=== PATIENT | female | born 1960 | race Caucasian/White ===

== ENCOUNTER → 2016-10-21 | Outpatient (CLI) | payer BC ==
--- NOTE | 2016-10-22 13:46 | Diagnostic Imaging Report ---
EXAMINATION: Bilateral screening mammogram with a Computer Aided Detection (CAD) system. INDICATION: Screening. PERSONAL HISTORY: No current complaints stated on the questionnaire. COMPARISON: 02/19/2006. FINDINGS: The breasts are composed of heterogeneously dense parenchyma which may decrease mammographic sensitivity. There is a 1 cm asymmetry along the central aspect of the left MLO view with no definitive correlate on the CC projection. The right breast is dense with no definitive focal lesion. IMPRESSION: Dense breasts. 1 cm asymmetry along the central aspect of the left MLO view. Focal compression views and bilateral ultrasound evaluation are recommended. ACR BI-RADS Category 0: Incomplete. (Needs additional imaging evaluation). Result letter will be mailed to the patient. Note: At least 10% of breast cancer is not imaged by mammography. Dictated by: Dictated on workstation # [id number]
== END ==
LOC: RAD 10:11
PROVIDERS: ATTEND Nurse Practitioner Family
DX: Z12.31 Encounter for screening mammogram for malignant neoplasm of breast (principal)
CPT/HCPCS: 77067

== ENCOUNTER → 2016-11-10 | Outpatient (CLI) | payer BC ==
--- NOTE | 2016-11-10 18:14 | Diagnostic Imaging Report ---
Left breast diagnostic mammogram. INDICATION: Asymmetry along the left MLO view. The current study was also evaluated with a Computer Aided Detection (CAD) system. FINDINGS: When the central aspect of the left MLO view is compressed, 2 subcentimeter circumscribed rounded asymmetries are seen. Etiology is indeterminate. IMPRESSION: Indeterminate rounded subcentimeter asymmetries seen in the central aspect of the left MLO view. Ultrasound evaluation pending. ACR BI-RADS Category 0: Incomplete. (Needs additional imaging evaluation). Result letter will be mailed to the patient. Note: At least 10% of breast cancer is not imaged by mammography. Dictated by: Dictated on workstation # [id number]
--- NOTE | 2016-11-10 18:18 | Diagnostic Imaging Report ---
Bilateral breast ultrasound. INDICATION: Dense breasts. Asymmetries seen in the left breast. FINDINGS: The four quadrants and retroareolar region of both breasts were scanned. The right breast demonstrates no definite abnormality. The left breast demonstrates a lesion measuring 1.2 x 0.7 x 0.7 cm in the retroareolar area. There are lobulated margins. Portions of the lesion are not well evaluated due to overlying shadow obscuring a portion of the margin. There is otherwise no internal vascularity suggested and there is suggestion of through-transmission. This is probably a complicated cyst. At 3:30 o'clock position, 4 cm from the nipple there are adjacent simple cysts measuring 1 cm and the smaller one measuring 0.6 cm which may correlate with the asymmetries seen on mammography. IMPRESSION: 1. Asymmetries seen on mammography appear to correlate with simple cysts around 3:30 o'clock position in the left breast. 2. In the retroareolar aspect of the left breast, a1.2 cm lobulated anechoic lesion with partially obscured margins is probably a complicated cyst with no definite internal solid component. Due to the partially obscured margins by overlying shadowing, a six-month follow-up left breast ultrasound is recommended to ensure stability. ACR BI-RADS Category 3: Probably benign findings. Dictated by: Dictated on workstation # [id number]
== END ==
LOC: RAD 14:05
PROVIDERS: ATTEND Nurse Practitioner Family
DX: R92.8 Other abnormal and inconclusive findings on diagnostic imaging of breast (principal)

== ENCOUNTER → 2017-05-12 | Outpatient (CLI) | payer BC ==
--- NOTE | 2017-05-12 22:30 | Diagnostic Imaging Report ---
Left breast ultrasound. INDICATION: Follow-up complicated cystic lesion in the retroareolar region of the left breast. COMPARISON: 11/10/2016. FINDINGS: The previously seen lesion is better evaluated this time and corresponds with a lobulated simple cyst measuring 1 cm. The borders are better evaluated with no obscured portion as seen on the previous exam. Other simple cysts are also seen around the periareolar region. No solid mass. IMPRESSION: Simple cysts identified with no suspicious lesion. Annual screening mammogram is recommended. ACR BI-RADS Category 2: Benign findings. Dictated by: Dictated on workstation # [id number]
== END ==
LOC: RAD 07:54
PROVIDERS: ATTEND Nurse Practitioner Family
DX: N60.02 Solitary cyst of left breast (principal)
CPT/HCPCS: 76642

== ENCOUNTER 2019-02-10 10:59 | Outpatient (RCR) | payer BC | END 2019-05-11 | disposition home or self-care (01) | LOC: CARD 10:59 | PROVIDERS: ATTEND Nurse Practitioner Family | DX: R94.31 Abnormal electrocardiogram [ECG] [EKG] (principal) | CPT/HCPCS: 93225; 93226 ==

== ENCOUNTER → 2019-03-01 | Outpatient (CLI) | payer BC ==
[~2019-03-01] MED LIST: CATHETER FLUSH 10 ML SYR IV PRN; REGADENOSON 0.4 MG/5 ML SYR (LEXISCAN) IV ONE
--- NOTE | 2019-03-01 17:08 | STRESS TEST ---
DATE OF SERVICE: 03/01/2019 RESTING AND POST REGADENOSON TECHNETIUM-99M TETROFOSMIN SPECT CT IMAGING ORDERING PHYSICIAN: Dr. Rdz. PRIMARY PHYSICIAN: Dr. Herrera. OTHER PHYSICIAN: ISMAEL Urena CLINICAL DIAGNOSES: Syncope, shortness of breath, weakness. Baseline images were carried out after injection of 10.1 mCi of technetium-99m Tetrofosmin. This was followed by 0.4 mg regadenoson and 30.6 mCi of technetium-99m Tetrofosmin for stress imaging. The electrocardiogram showed sinus rhythm at baseline and there was incomplete right bundle branch block. The electrocardiogram did not change significantly with the regadenoson infusion. The patient tolerated the procedure well and did not report symptoms. Review of images at rest and following stress does not indicate any significant perfusion defects consistent with significant myocardial ischemia or infarction. Gated images show normal global left ventricular systolic function with normal regional wall motion. Left ventricular ejection fraction is calculated to be 69%. Left ventricular end-diastolic volume is 42 mL. TID is absent (1.07). CONCLUSIONS: 1. No evidence of any significant myocardial ischemia or infarction on this study. 2. Normal regional wall motion. 3. Normal global left ventricular systolic function with a calculated ejection fraction of 69%. Job ID: [id number] DocumentID: [id number] Dictated Date: 03/01/2019 13:29:32 Personal Chef Date: 03/01/2019 17:06:51 Dictated By: ANAMARIA RDZ MD, MA, FACP, FACC,
== END ==
LOC: CARD 08:44
PROVIDERS: ATTEND Internal Medicine Cardiovascular Disease
DX: I73.9 Peripheral vascular disease, unspecified (principal); M79.7 Fibromyalgia; R55 Syncope and collapse; R06.02 Shortness of breath
CPT/HCPCS: 78452; 93017; 93306; 93923

== ENCOUNTER → 2019-06-10 | Outpatient (CLI) | payer BC ==
--- NOTE | 2019-06-10 11:48 | Diagnostic Imaging Report ---
INDICATION: Routine screening. Comparison is made with prior mammogram from 10/21/2016. 2-D and 3-D bilateral screening mammography was performed with CAD. Both breasts are heterogeneously dense, limiting the sensitivity of mammography. Circumscribed lesion in the slightly outer inferior left breast is noted, most suggestive of a cyst. No spiculated mass or malignant appearing microcalcifications are seen. There are benign calcifications. Axillae are unremarkable. IMPRESSION: BI-RADS Category 2 No mammographic features suspicious for malignancy are identified. Dictated by: Dictated on workstation # [id number]
== END ==
LOC: RAD 08:38
PROVIDERS: ATTEND Nurse Practitioner Family
DX: Z12.31 Encounter for screening mammogram for malignant neoplasm of breast (principal)
CPT/HCPCS: 77067

== ENCOUNTER 2019-08-04 19:45 | Outpatient (CLI) | payer MEDICAID, OTHER | END 2019-08-05 06:30 | disposition home or self-care (01) | LOC: SLEEP 19:45 | PROVIDERS: ATTEND Psychiatry & Neurology Neurology | DX: G47.33 Obstructive sleep apnea (adult) (pediatric) (principal); G47.00 Insomnia, unspecified | CPT/HCPCS: 95810 ==

== ENCOUNTER 2020-02-14 11:10 | Emergency (ER) | payer OTHER ==
[~2020-02-14] VITALS: Ht 160 cm; Wt 83.0 kg
[2020-02-14 12:12] LABS: BASOPHILS % (AUTO) 0 % (0-10); EOSINOPHILS # (AUTO) 0.1 10^3/uL (0.0-0.3); EOSINOPHILS % (AUTO) 2 % (0-10); HEMATOCRIT 41 % (35-52); HEMOGLOBIN 13.9 G/DL (11.5-16.0); LYMPHOCYTES # (AUTO) 1.6 X 10^3 (1.0-4.0); LYMPHOCYTES % (AUTO) 34 % (12-44); MEAN CORPUSCULAR HEMOGLOBIN 30 PG (25-34); MEAN CORPUSCULAR HGB CONC 34 G/DL (32-36); MEAN CORPUSCULAR VOLUME 89 FL (80-99); MEAN PLATELET VOLUME 8.4 FL (7.4-10.4); MONOCYTES # (AUTO) 0.5 X 10^3 (0.0-1.0); MONOCYTES % (AUTO) 10 % (0-12); NEUTROPHILS # (AUTO) 2.6 X 10^3 (1.8-7.8); NEUTROPHILS % (AUTO) 54 % (42-75); PLATELET COUNT 279 10^3/uL (130-400); RED CELL DISTRIBUTION WIDTH 13.5 % (10.0-14.5); WHITE BLOOD COUNT 4.7 10^3/uL (4.3-11.0)
[2020-02-14 12:19] LABS: BILIRUBIN,URINE NEGATIVE (NEGATIVE); CLARITY,URINE CLEAR; COLOR,URINE YELLOW; GLUCOSE, URINE (UA) NEGATIVE (NEGATIVE); KETONES,URINE NEGATIVE (NEGATIVE); LEUKOCYTE ESTERASE ,URINE NEGATIVE (NEGATIVE); NITRITE,URINE NEGATIVE (NEGATIVE); PROTEIN,URINE NEGATIVE (NEGATIVE)
[2020-02-14 12:25] LABS: RBC,URINE RARE /HPF
[2020-02-14 12:26] LABS: BACTERIA,URINE TRACE /HPF; WBC,URINE 0-2 /HPF
[2020-02-14 12:39] LABS: ERYTHROCYTE SEDIMENTATION RATE 8 MM/HR (0-30)
[2020-02-14 12:49] LABS: ALANINE AMINOTRANSFERASE 23 U/L (0-55); ALBUMIN 4.5 GM/DL (3.2-4.5); ALKALINE PHOSPHATASE 94 U/L (40-136); BILIRUBIN,TOTAL 0.5 MG/DL (0.1-1.0); BUN/CREATININE RATIO 10; CALCIUM 9.6 MG/DL (8.5-10.1); CARBON DIOXIDE 27 MMOL/L (21-32); CHLORIDE 105 MMOL/L (98-107); CREATINE KINASE 90 U/L (29-168); CREATININE SERUM 0.83 MG/DL (0.60-1.30); GFR ESTIMATED > 60; GLUCOSE 88 MG/DL (70-105); MAGNESIUM 2.2 MG/DL (1.6-2.4); POTASSIUM 4.6 MMOL/L (3.6-5.0); SODIUM 141 MMOL/L (135-145); TOTAL PROTEIN 7.8 GM/DL (6.4-8.2)
--- NOTE | 2020-02-14 13:14 | ED General ---
General Chief Complaint: General Problems/Pain Stated Complaint: PAIN ALL OVER Nursing Triage Note: PT STATES HX OF LYME DISEASE, PAIN ALL OVER FOR 3 DAYS, IBUPROFEN MG TAKEN AT 0900. DENIES CHEST PAIN OR FEVER, JUST MUSCLE PAIN AND WEAKNESS. Nursing Sepsis Screen: No Definite Risk Source of Information: Patient Exam Limitations: No Limitations History of Present Illness Date Seen by Provider: Feb 14, 2020 Time Seen by Provider: 11:52 Initial Comments This 59-year-old woman presents to the emergency room with complaints of generalized myalgia throughout the entire body. She states this is an exacerbation of a chronic problem rather than new problem. She states history of Lyme's disease. 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 She denies any acute symptoms of infectious illness such as cough, fever, vomiting, shortness of breath, etc. She denies recently stopping or starting any medications. Allergies and Home Medications Allergies Coded Allergies: cephalexin (Unverified Allergy, Unknown, Hives, 04/09/16) codeine (Unverified Adverse Reaction, Unknown, Nausea, 04/09/16) mold (Unverified Adverse Reaction, Unknown, 04/09/16) Patient Home Medication List Home Medication List Reviewed: Yes Review of Systems Review of Systems Constitutional: no symptoms reported EENTM: no symptoms reported Respiratory: no symptoms reported Cardiovascular: no symptoms reported Gastrointestinal: no symptoms reported Genitourinary: no symptoms reported Musculoskeletal: see HPI Skin: no symptoms reported Psychiatric/Neurological: No Symptoms Reported Hematologic/Lymphatic: No Symptoms Reported Past Wkbyyqb-Fvqlzn-Rheian Hx Past Med/Social Hx: Reviewed Nursing Past Med/Soc Hx Patient Social History Alcohol Use: Denies Use Recreational Drug Use: No Smoking Status: Never a Smoker Recent Foreign Travel: No Contact w/Someone Who Travel: No Recent Infectious Disease Expo: No Recent Hopitalizations: No Physical Abuse: No Sexual Abuse: No Mistreated: No Fear: No Immunizations Up To Date Tetanus Booster (TDap): Unknown Seasonal Allergies Seasonal Allergies: No Past Medical History Surgeries: Yes Bowel Surgery (colectomy) Respiratory: No Cardiac: Yes Hypertension Neurological: No : No Reproductive Disorders: No Gastrointestinal: Yes (colectomy) Colitis, Irritable Bowel Musculoskeletal: Yes (history of Lyme's disease) Fibromyalgia Endocrine: No Cancer: No Psychosocial: No Integumentary: No Blood Disorders: Yes (history of Lyme's disease) Physical Exam Vital Signs Vital Signs - First Documented 02/14/20 02/14/20 11:49 13:48 Temp 36.5 Pulse 80 Resp 18 B/P (MAP) 157/98 (117) Pulse Ox 99 O2 Delivery Room Air Capillary Refill : Less Than 3 Seconds Height, Weight, BMI Height: 5'2" Weight: 180lbs. oz. 81.711370vr; 32.00 BMI Method:Stated General Appearance: No Apparent Distress, WD/WN, Thin HEENT: PERRL/EOMI, Normal ENT Inspection Neck: Normal Inspection Respiratory: Lungs Clear, Normal Breath Sounds, No Accessory Muscle Use Cardiovascular: Regular Rate, Rhythm, No Edema, No Murmur Gastrointestinal: Normal Bowel Sounds, Non Tender, Soft Extremity: Normal Inspection, No Pedal Edema, Other (generalized tenderness) Neurologic/Psychiatric: Alert, Oriented x3, No Motor/Sensory Deficits, Normal Mood/Affect, cardiology clinical nurse specialist II-XII Norm as Tested Skin: Normal Color, Warm/Dry Progress/Results/Core Measures Suspected Sepsis Recent Fever Within 48 Hours: No Infection Criteria Present: None New/Unexplained Altered Menta: No Sepsis Screen: No Definite Risk SIRS Temperature: Pulse: 80 Respiratory Rate: 18 Laboratory Tests 02/14/20 12:00: White Blood Count 4.7 Blood Pressure 157 /98 Mean: 117 Laboratory Tests 02/14/20 12:00: Creatinine 0.83, Platelet Count 279, Total Bilirubin 0.5 Results/Orders Lab Results Laboratory Tests Test 02/14/20 12:00 02/14/20 12:14 Range/Units White Blood Count 4.7 4.3-11.0 10^3/uL Red Blood Count 4.62 4.35-5.85 10^6/uL Hemoglobin 13.9 11.5-16.0 G/DL Hematocrit 41 35-52 % Mean Corpuscular Volume 89 80-99 FL Mean Corpuscular Hemoglobin 30 25-34 PG Mean Corpuscular Hemoglobin Concent 34 32-36 G/DL Red Cell Distribution Width 13.5 10.0-14.5 % Platelet Count 279 130-400 10^3/uL Mean Platelet Volume 8.4 7.4-10.4 FL Neutrophils (%) (Auto) 54 42-75 % Lymphocytes (%) (Auto) 34 12-44 % Monocytes (%) (Auto) 10 0-12 % Eosinophils (%) (Auto) 2 0-10 % Basophils (%) (Auto) 0 0-10 % Neutrophils # (Auto) 2.6 1.8-7.8 X 10^3 Lymphocytes # (Auto) 1.6 1.0-4.0 X 10^3 Monocytes # (Auto) 0.5 0.0-1.0 X 10^3 Eosinophils # (Auto) 0.1 0.0-0.3 10^3/uL Basophils # (Auto) 0.0 0.0-0.1 10^3/uL Erythrocyte Sedimentation Rate 8 0-30 MM/HR Sodium Level 141 135-145 MMOL/L Potassium Level 4.6 3.6-5.0 MMOL/L Chloride Level 105 98-107 MMOL/L Carbon Dioxide Level 27 21-32 MMOL/L Anion Gap 9 5-14 MMOL/L Blood Urea Nitrogen 8 7-18 MG/DL Creatinine 0.83 0.60-1.30 MG/DL Estimat Glomerular Filtration Rate > 60 BUN/Creatinine Ratio 10 Glucose Level 88 70-105 MG/DL Calcium Level 9.6 8.5-10.1 MG/DL Corrected Calcium 9.2 8.5-10.1 MG/DL Magnesium Level 2.2 1.6-2.4 MG/DL Total Bilirubin 0.5 0.1-1.0 MG/DL Aspartate Amino Transf (AST/SGOT) 23 5-34 U/L Alanine Aminotransferase (ALT/SGPT) 23 0-55 U/L Alkaline Phosphatase 94 40-136 U/L Total Creatine Kinase 90 29-168 U/L C-Reactive Protein High Sensitivity 0.38 0.00-0.50 MG/DL Total Protein 7.8 6.4-8.2 GM/DL Albumin 4.5 3.2-4.5 GM/DL TSH [place] Testing 2.30 0.35-4.94 UIU/ML Urine Color YELLOW Urine Clarity CLEAR Urine pH 6.0 5-9 Urine Specific [place] 1.010 L 1.016-1.022 Urine Protein NEGATIVE NEGATIVE Urine Glucose (UA) NEGATIVE NEGATIVE Urine Ketones NEGATIVE NEGATIVE Urine Nitrite NEGATIVE NEGATIVE Urine Bilirubin NEGATIVE NEGATIVE Urine Urobilinogen 0.2 < = 1.0 MG/DL Urine Leukocyte Esterase NEGATIVE NEGATIVE Urine RBC (Auto) TRACE-I NEGATIVE Urine RBC RARE /HPF Urine WBC 0-2 /HPF Urine Squamous Epithelial Cells 2-5 /HPF Urine Crystals NONE /LPF Urine Bacteria TRACE /HPF Urine Casts NONE /LPF Urine Mucus NEGATIVE /LPF Urine Culture Indicated NO My Orders Orders - ALKA ROBBINS MD Cbc With Automated Diff (02/14/20 12:05) Comprehensive Metabolic Panel (02/14/20 12:05) Creatine Kinase (02/14/20 12:05) Hs C Reactive Protein (02/14/20 12:05) Magnesium (02/14/20 12:05) Thyroid Analyzer (02/14/20 12:05) Ua Culture If Indicated (02/14/20 12:05) Erythrocyte Sedimentation Rate (02/14/20 12:05) Ed Iv/Invasive Line Start (02/14/20 12:05) Ketorolac Injection (Toradol Injection) (02/14/20 13:15) Medications Given in ED Current Medications Medications Dose Ordered Sig/Bernice Route Start Time Stop Time Status Last Admin Dose Admin Ketorolac Tromethamine 15 mg ONCE ONCE IVP 02/14/20 13:15 02/14/20 13:16 DC 02/14/20 13:23 15 MG Vital Signs/I&O 02/14/20 02/14/20 02/14/20 11:49 13:23 13:48 Temp 36.5 36.5 36.5 Pulse 80 75 Resp 18 18 B/P (MAP) 157/98 (117) 137/87 (117) Pulse Ox 99 99 O2 Delivery Room Air Capillary Refill : Less Than 3 Seconds Blood Pressure Mean: 117 Progress Note : Progress Note Workup in the ER was unremarkable. Patient was given Toradol for pain control. I discussed the case with Veronica Hand, patient's primary care provider.further evaluation in the outpatient setting was felt most appropriate. See discharge instructions. Departure Impression Primary Impression: Myalgia Disposition: 01 HOME, SELF-CARE Condition: Stable Departure-Patient Inst. Decision time for Depature: 13:16 Referrals: [facility]I HAND (PCP) Primary Care Physician Patient Instructions: Fibromyalgia (DC) Add. Discharge Instructions: Follow-up with your primary care provider as soon as possible. Consider testing for labs not performed at the emergency room which might include vitamin D level and vitamin B-12. In the meantime, eat a gluten-free diet that has worked for you in the past. Return to care if you have a significant worsening in symptoms. You may take ibuprofen up to 400 mg every 6 hours as needed and Tylenol (acetaminophen) up to 1000 mg every 6 hours as needed. All discharge instructions reviewed with patient and/or family. Voiced understanding. Copy Copies To 1: SERAFIN DALY JOSHUA T MD Feb 14, 2020 13:14
[2020-02-14] MEDS ORDERED: KETOROLAC 30 MG/ML VIAL IVP ONE (13:15)
[2020-02-14 13:48] VITALS: BP 137/87
== END 2020-02-14 13:47 | disposition home or self-care (01) ==
LOC: EDUNIT# 11:10 → ER 11:11
DX: M79.10 Myalgia, unspecified site (principal); Z88.1 Allergy status to other antibiotic agents; Z88.5 Allergy status to narcotic agent
CPT/HCPCS: 36415; 80053; 81000; 82550; 83735; 84443; 85025; 85652; 86141

== ENCOUNTER 2020-03-23 14:29 | Outpatient (RCR) | payer OTHER | END 2020-05-03 11:13 | disposition home or self-care (01) | PROVIDERS: ATTEND Nurse Practitioner Family | DX: M54.5 Low back pain (principal) ==

== ENCOUNTER 2020-10-27 15:32 | Emergency (ER) | payer OTHER ==
[~2020-10-27] VITALS: Ht 160 cm; Wt 83.9 kg
[2020-10-27 16:03] LABS: BASOPHILS % (AUTO) 0 % (0-10); EOSINOPHILS # (AUTO) 0.1 10^3/uL (0.0-0.3); EOSINOPHILS % (AUTO) 1 % (0-10); HEMATOCRIT 43 % (35-52); HEMOGLOBIN 14.5 g/dL (11.5-16.0); LYMPHOCYTES # (AUTO) 1.9 10^3/uL (1.0-4.0); LYMPHOCYTES % (AUTO) 33 % (12-44); MEAN CORPUSCULAR HEMOGLOBIN 30 pg (25-34); MEAN CORPUSCULAR HGB CONC 33 g/dL (32-36); MEAN CORPUSCULAR VOLUME 89 fL (80-99); MEAN PLATELET VOLUME 8.7 fL (9.0-12.2); MONOCYTES # (AUTO) 0.5 10^3/uL (0.0-1.0); MONOCYTES % (AUTO) 9 % (0-12); NEUTROPHILS # (AUTO) 3.3 10^3/uL (1.8-7.8); NEUTROPHILS % (AUTO) 57 % (42-75); PLATELET COUNT 323 10^3/uL (130-400); WHITE BLOOD COUNT 5.8 10^3/uL (4.3-11.0)
[2020-10-27 16:14] LABS: ALBUMIN 4.9 GM/DL (3.2-4.5); CHLORIDE 102 MMOL/L (98-107); POTASSIUM 3.6 MMOL/L (3.6-5.0); SODIUM 140 MMOL/L (135-145)
[2020-10-27 16:15] LABS: CALCIUM 9.8 MG/DL (8.5-10.1)
--- NOTE | 2020-10-27 16:15 | ED Abdominal Pain ---
General Chief Complaint: Abdominal/GI Problems Stated Complaint: CP/BACK PAIN Nursing Triage Note: Ambulatory to rm 5. Pt was sent to ED from [facility]. Pt c/o epigastric pain that began at approximately 0930 this morning. Pt reports pain wraps all the way around to back. Pt reports taking IBU this morning at 1233. Pt c/o gas and burping today. Sepsis Screen: No Definite Risk Source of Information: Patient Exam Limitations: No Limitations History of Present Illness Date Seen by Provider: October 27, 2020 Time Seen by Provider: 15:37 Initial Comments This is a well-appearing 59-year-old female who presents to the ER with epigastric pain that radiates around both sides into her back. States her symptoms began around 9 AM this morning while she was getting dressed. Describes as sharp pains that is worse with movement. Currently rating 9/10 at this time. Reports increased burping and epigastric pressure. States that she drank a turmeric tea earlier to see if this would help as her fibromyalgia is also flared at this time. No fevers, chills, cough, shortness of breath, nausea, vomiting. Allergies and Home Medications Allergies Coded Allergies: cephalexin (Unverified Allergy, Unknown, Hives, 04/09/16) codeine (Unverified Adverse Reaction, Unknown, Nausea, 04/09/16) mold (Unverified Adverse Reaction, Unknown, 04/09/16) Home Medications Hydrocodone/Acetaminophen 1 Each Tablet, 1 TAB PO Q6H PRN for PAIN-MODERATE (5- 7) Prescribed by: JOSE D MCCOY on 10/27/201911 Ondansetron 4 Mg Tab.rapdis, 4 MG PO Q6H Prescribed by: JOSE D MCCOY on 10/27/201927 Patient Home Medication List Home Medication List Reviewed: Yes Review of Systems Review of Systems Constitutional: see HPI EENTM: No Symptoms Reported Respiratory: No Symptoms Reported Cardiovascular: No Symptoms Reported Gastrointestinal: See HPI Genitourinary: No Symptoms Reported Musculoskeletal: see HPI Skin: no symptoms reported Psychiatric/Neurological: No Symptoms Reported Endocrine: No Symptoms Reported Hematologic/Lymphatic: No Symptoms Reported Past Gjygnux-Rjfnuf-Wwdlvr Hx Patient Social History Alcohol Use: Denies Use 2nd Hand Smoke Exposure: No Recent Infectious Disease Expo: No Recent Hopitalizations: No Immunizations Up To Date Tetanus Booster (TDap): Unknown Seasonal Allergies Seasonal Allergies: No Past Medical History Surgeries: Yes (Pt has J pouch) Bowel Surgery Respiratory: No Cardiac: Yes Hypertension Neurological: No Reproductive Disorders: No Gastrointestinal: Yes (colectomy) Colitis, Irritable Bowel Musculoskeletal: Yes (history of Lyme's disease) Fibromyalgia Endocrine: No Cancer: No Psychosocial: No Integumentary: No Blood Disorders: Yes (history of Lyme's disease) Physical Exam Vital Signs Vital Signs - First Documented 10/27/20 15:37 Temp 36.4 Pulse 93 Resp 26 B/P (MAP) 148/105 (119) Pulse Ox 97 O2 Delivery Room Air Capillary Refill : Less Than 3 Seconds Height/Weight/BMI Height: 5'2" Weight: 180lbs. oz. 81.482757mk; 32.00 BMI Method:Stated General Appearance: WD/WN, no apparent distress HEENT: PERRL/EOMI, normal ENT inspection Neck: full range of motion, normal inspection Respiratory: lungs clear, normal breath sounds, no respiratory distress, no accessory muscle use, other (lower ribs bilat tender to palpation ant, lat, and posterior. ) Cardiovascular: regular rate, rhythm, no edema, no murmur Gastrointestinal: normal bowel sounds, soft; No distended Extremities: normal range of motion, normal inspection Back: normal inspection, no vertebral tenderness; No decreased range of motion Neurologic/Psychiatric: no motor/sensory deficits, alert, normal mood/affect, oriented x 3 Skin: normal color, warm/dry Progress/Results/Core Measures Results/Orders Lab Results Laboratory Tests Test 10/27/20 15:50 10/27/20 17:22 Range/Units White Blood Count 5.8 4.3-11.0 10^3/uL Red Blood Count 4.90 3.80-5.11 10^6/uL Hemoglobin 14.5 11.5-16.0 g/dL Hematocrit 43 35-52 % Mean Corpuscular Volume 89 80-99 fL Mean Corpuscular Hemoglobin 30 25-34 pg Mean Corpuscular Hemoglobin Concent 33 32-36 g/dL Red Cell Distribution Width 12.9 10.0-14.5 % Platelet Count 323 130-400 10^3/uL Mean Platelet Volume 8.7 L 9.0-12.2 fL Immature Granulocyte % (Auto) 0 % Neutrophils (%) (Auto) 57 42-75 % Lymphocytes (%) (Auto) 33 12-44 % Monocytes (%) (Auto) 9 0-12 % Eosinophils (%) (Auto) 1 0-10 % Basophils (%) (Auto) 0 0-10 % Neutrophils # (Auto) 3.3 1.8-7.8 10^3/uL Lymphocytes # (Auto) 1.9 1.0-4.0 10^3/uL Monocytes # (Auto) 0.5 0.0-1.0 10^3/uL Eosinophils # (Auto) 0.1 0.0-0.3 10^3/uL Basophils # (Auto) 0.0 0.0-0.1 10^3/uL Immature Granulocyte # (Auto) 0.0 0.0-0.1 10^3/uL Sodium Level 140 135-145 MMOL/L Potassium Level 3.6 3.6-5.0 MMOL/L Chloride Level 102 98-107 MMOL/L Carbon Dioxide Level 24 21-32 MMOL/L Anion Gap 14 5-14 MMOL/L Blood Urea Nitrogen 9 7-18 MG/DL Creatinine 0.83 0.60-1.30 MG/DL Estimat Glomerular Filtration Rate > 60 BUN/Creatinine Ratio 11 Glucose Level 84 70-105 MG/DL Calcium Level 9.8 8.5-10.1 MG/DL Corrected Calcium 8.5-10.1 MG/DL Magnesium Level 2.2 1.6-2.4 MG/DL Total Bilirubin 0.7 0.1-1.0 MG/DL Aspartate Amino Transf (AST/SGOT) 20 5-34 U/L Alanine Aminotransferase (ALT/SGPT) 19 0-55 U/L Alkaline Phosphatase 99 40-136 U/L Troponin I < 0.028 <0.028 NG/ML C-Reactive Protein High Sensitivity 0.50 0.00-0.50 MG/DL Total Protein 8.2 6.4-8.2 GM/DL Albumin 4.9 H 3.2-4.5 GM/DL Lipase 28 8-78 U/L Urine Color YELLOW Urine Clarity CLEAR Urine pH 7.0 5-9 Urine Specific [place] <=1.005 1.016-1.022 Urine Protein NEGATIVE NEGATIVE Urine Glucose (UA) NEGATIVE NEGATIVE Urine Ketones NEGATIVE NEGATIVE Urine Nitrite NEGATIVE NEGATIVE Urine Bilirubin NEGATIVE NEGATIVE Urine Urobilinogen 0.2 < = 1.0 MG/DL Urine Leukocyte Esterase TRACE H NEGATIVE Urine RBC (Auto) NEGATIVE NEGATIVE Urine RBC NONE /HPF Urine WBC 2-5 /HPF Urine Squamous Epithelial Cells RARE /HPF Urine Crystals NONE /LPF Urine Bacteria TRACE /HPF Urine Casts NONE /LPF Urine Mucus NEGATIVE /LPF Urine Culture Indicated NO My Orders Orders - JOSE D MCCOY APRN Ekg Tracing (10/27/20 15:34) Ct Chest/Abdomen/Pelvis W (10/27/20 16:43) Iohexol Injection (Omnipaque 350 Mg/Ml 1 (10/27/20 17:00) Received Contrast (Hold Metformin- Contr (10/27/20 17:00) Ns (Ivpb) (Sodium Chloride 0.9% Ivpb Bag (10/27/20 17:00) Ua Culture If Indicated (10/27/20 17:18) Acetaminophen Tablet (Tylenol Tablet) (10/27/20 18:00) Ondansetron Injection (Zofran Injectio (10/27/20 18:15) Hydrocodone/Apap 5/325 Tablet (Lortab 5 (10/27/20 18:15) Medications Given in ED Vital Signs/I&O 10/27/20 10/27/20 15:37 19:17 Temp 36.4 36.6 Pulse 93 73 Resp 26 16 B/P (MAP) 148/105 (119) 127/73 (119) Pulse Ox 97 99 O2 Delivery Room Air Room Air Blood Pressure Mean: 119 Progress Progress Note : Progress Note Patient examined and in no acute distress. Declines need for pain medication at this time, states that she took 2 ibuprofen approximate 1230 this afternoon. Pain is not present while at rest. This is reassuring from cardiac standpoint however will initiate cardiac work-up add lipase and obtain basic labs. EKG sinus rhythm no ST segment changes. Currently denying any nausea and pain is controlled. Will monitor. Labs reviewed and are unremarkable. Orders placed for CT chest abdomen pelvis. Continues to deny need for pain management at this time as long as she does not move. CT chest negative, CT abdomen pelvis suspicious for pancreatic lesion. Discussed case with Dr. Figueroa recommended nausea and pain control and patient to follow-up with him next week Discussed using hydrocodone for pain management states that she has an adverse effect to codeine which causes her to have nausea/vomiting. Will give Zofran prior to administration of hydrocodone to see if this will reduce her sensitivity to hydrocodone. At time of discharge reported improvement in pain without nausea, no emesis. Reviewed discharge plan of care and patient and spouse both agreeable with plan. No questions or concerns at this time. Initial ECG Impression Date: October 27, 2020 Initial ECG Impression Time: 15:39 Initial ECG Rate: 76 Initial ECG Rhythm: Normal Sinus Initial ECG Impression: Nonspecific Changes Initial ECG Comparisson: No Previous ECG Available Diagnostic Imaging Diagonstic Imaging: Xray Plain Films/CT/US/NM/MRI: chest Comments NAME: KENDAL ORTIZ [facility] REC#: [id number] PT STATUS: REG ER : 1960 PHYSICIAN: JOHN CHUNG MD ADMIT DATE: 10/27/20/ER Draft Date of Exam:10/27/20 CHEST 1 VIEW, AP/PA ONLY EXAMINATION: Chest 1 view. HISTORY: Abdominal pain. COMPARISON: None available. FINDINGS: The lung volumes are normal. No focal consolidation is seen. No large pleural effusion or pneumothorax is seen. The cardiomediastinal silhouette is prominent. No acute osseous abnormality is seen. IMPRESSION: Prominent cardiac silhouette. No overt pulmonary edema. Dictated on workstation # [id number] Dict: 10/27/20 1621 Trans: 10/27/20 1626 [facility] [id number] Interpreted by: ARMANI RG DO Electronically signed by: Diagonstic Imaging: CT Plain Films/CT/US/NM/MRI: chest, abdomen Comments NAME: KENDAL ORTIZ [employer] [facility] REC#: [id number] PT STATUS: REG ER : 1960 PHYSICIAN: JOSE D MCCOY APRN ADMIT DATE: 10/27/20/ER Draft Date of Exam:10/27/20 CT CHEST/ABDOMEN/PELVIS W PROCEDURE: CT chest, abdomen and pelvis with contrast. TECHNIQUE: Multiple contiguous axial images were obtained through the chest, abdomen, and pelvis after the administration of intravenous contrast. Auto Exposure Controls were utilized during the CT exam to meet ALARA standards for radiation dose reduction. INDICATION: Epigastric and chest pain. COMPARISON: None. FINDINGS: CT chest: Cardiomediastinal structures show normal heart size. Thoracic aorta is normal in course and caliber. There is no evidence of dissection, aneurysm or focal significant stenosis. There is no large pericardial effusion. No pathologically enlarged or morphologically abnormal adenopathy is seen within the mediastinum, jammie or axilla. Lung leone show bibasilar scarring and/or atelectasis. There is no focal consolidation, large effusion or pneumothorax. No suspicious pulmonary nodule or mass is seen. Osseous structures show no acute abnormality. No lytic or blastic bony lesion is seen. CT abdomen: Patient is status post colectomy. Small bowel loops are nondistended. Evaluation of kidneys demonstrates benign cyst on the left. Otherwise, kidneys, adrenal glands, spleen and liver have a normal CT appearance. Evaluation of the pancreas demonstrates suspicious irregular lesion within the tail of the pancreas that measures 1.9 x 2.4 cm. It shows relative hypoenhancement on the nephrographic phase (image 58, series 2). There is no abnormal stranding of the peripancreatic fat. There is no loculated fluid collection, free fluid or free air within the abdomen. No abnormal adenopathy is identified. Osseous structures show no acute abnormality. CT pelvis: Urinary bladder is grossly unremarkable. There is no loculated fluid collection, free fluid or free air within the pelvis. No abnormal lymph node is seen. Osseous structures show no acute abnormality. IMPRESSION: 1. No acute abnormality is seen within the chest, abdomen or pelvis. 2. Suspicious relative hypoenhancing lesion within the tail of the pancreas. This does raise strong concern for malignancy. Surgical consultation is recommended. Further evaluation with pre and post contrast MR of the abdomen may be of benefit as well and could be performed on a nonemergent basis. Dictated on workstation # [id number] Dict: 10/27/20 1719 Trans: 10/27/20 1730 [facility] [id number] Interpreted by: RIDDHI COLLIER MD Electronically signed by: Departure Communication (Admissions) Time/Spoke to Consulting Phy: 17:[address] Figureoa, recommended pain management and nausea control and to have her follow-up in office with him on Thursday. Impression Primary Impression: Pancreatic lesion Disposition: HOME, SELF-CARE Condition: Improved Departure-Patient Inst. Decision time for Depature: 18:14 Referrals: [facility] (PCP/Family) Primary Care Physician IKE FIGUEROA MD Patient Instructions: Severe Abdominal Pain, Adult (DC) Add. Discharge Instructions: Plan: Follow up with Dr. Figueroa next week. Call office to schedule appointment. Take Zofran 4mg by mouth every 6 hours as needed before Hydrocodone. Return to ER if you pain is not controlled and/or you are not able to eat/drink. Return for any new or worsening symptoms. All discharge instructions reviewed with patient and/or family. Voiced understanding. Scripts Ondansetron (Ondansetron Odt) 4 Mg Tab.rapdis 4 MG PO Q6H for Nausea, #30 TAB 0 Refills Prov: JOSE D MCCOY FISHER[employer] MANAGER 10/27/20 Hydrocodone/Acetaminophen (Hydrocodone-Acetamin 5-325 mg) 1 Each Tablet 1 TAB PO Q6H PRN for PAIN-MODERATE (5-7), #20 TAB 0 Refills Prov: JOSE D MCCOY FISHERIES MANAGER 10/27/20 Work/School Note: Work Release Form Date Seen in the Emergency Department: October 27, 2020 Return to Work: October 30, 2020 Restrictions: No Restrictions Copy Copies To 1: [facility] [place] Copies To 2: IKE FIGUEROA MD, STORMY D FISHERIES MANAGER October 27, 2020 16:14
[2020-10-27 16:16] LABS: GLUCOSE 84 MG/DL (70-105); TOTAL PROTEIN 8.2 GM/DL (6.4-8.2)
[2020-10-27 16:17] LABS: CARBON DIOXIDE 24 MMOL/L (21-32)
[2020-10-27 16:18] LABS: BILIRUBIN,TOTAL 0.7 MG/DL (0.1-1.0)
[2020-10-27 16:20] LABS: ALKALINE PHOSPHATASE 99 U/L (40-136); CREATININE SERUM 0.83 MG/DL (0.60-1.30); GFR ESTIMATED > 60
[2020-10-27 16:21] LABS: BUN/CREATININE RATIO 11
[2020-10-27 16:23] LABS: ALANINE AMINOTRANSFERASE 19 U/L (0-55); MAGNESIUM 2.2 MG/DL (1.6-2.4)
[2020-10-27 16:24] LABS: LIPASE 28 U/L (8-78)
--- NOTE | 2020-10-27 16:26 | Diagnostic Imaging Report ---
EXAMINATION: Chest 1 view. HISTORY: Abdominal pain. COMPARISON: None available. FINDINGS: The lung volumes are normal. No focal consolidation is seen. No large pleural effusion or pneumothorax is seen. The cardiomediastinal silhouette is prominent. No acute osseous abnormality is seen. IMPRESSION: Prominent cardiac silhouette. No overt pulmonary edema. Dictated by: Dictated on workstation # [id number]
[2020-10-27] MEDS ORDERED: IOHEXOL 350 MG/ML 100 ML (OMNIPAQUE 350) VIAL IV ONE (17:00)
[2020-10-27] MEDS ORDERED: NS 100 ML (IVPB) BAG IV ONE (17:00)
[2020-10-27] MEDS ORDERED: HOLD METFORMIN - RECEIVED CONTRAST 20 ML VIAL IV SCH (17:00)
[2020-10-27 17:30] LABS: BILIRUBIN,URINE NEGATIVE (NEGATIVE); CLARITY,URINE CLEAR; COLOR,URINE YELLOW; GLUCOSE, URINE (UA) NEGATIVE (NEGATIVE); KETONES,URINE NEGATIVE (NEGATIVE); LEUKOCYTE ESTERASE ,URINE TRACE (NEGATIVE); NITRITE,URINE NEGATIVE (NEGATIVE); PROTEIN,URINE NEGATIVE (NEGATIVE)
--- NOTE | 2020-10-27 17:31 | Diagnostic Imaging Report ---
PROCEDURE: CT chest, abdomen and pelvis with contrast. TECHNIQUE: Multiple contiguous axial images were obtained through the chest, abdomen, and pelvis after the administration of intravenous contrast. Auto Exposure Controls were utilized during the CT exam to meet ALARA standards for radiation dose reduction. INDICATION: Epigastric and chest pain. COMPARISON: None. FINDINGS: CT chest: Cardiomediastinal structures show normal heart size. Thoracic aorta is normal in course and caliber. There is no evidence of dissection, aneurysm or focal significant stenosis. There is no large pericardial effusion. No pathologically enlarged or morphologically abnormal adenopathy is seen within the mediastinum, jammie or axilla. Lung leone show bibasilar scarring and/or atelectasis. There is no focal consolidation, large effusion or pneumothorax. No suspicious pulmonary nodule or mass is seen. Osseous structures show no acute abnormality. No lytic or blastic bony lesion is seen. CT abdomen: Patient is status post colectomy. Small bowel loops are nondistended. Evaluation of kidneys demonstrates benign cyst on the left. Otherwise, kidneys, adrenal glands, spleen and liver have a normal CT appearance. Evaluation of the pancreas demonstrates suspicious irregular lesion within the tail of the pancreas that measures 1.9 x 2.4 cm. It shows relative hypoenhancement on the nephrographic phase (image 58, series 2). There is no abnormal stranding of the peripancreatic fat. There is no loculated fluid collection, free fluid or free air within the abdomen. No abnormal adenopathy is identified. Osseous structures show no acute abnormality. CT pelvis: Urinary bladder is grossly unremarkable. There is no loculated fluid collection, free fluid or free air within the pelvis. No abnormal lymph node is seen. Osseous structures show no acute abnormality. IMPRESSION: 1. No acute abnormality is seen within the chest, abdomen or pelvis. 2. Suspicious relative hypoenhancing lesion within the tail of the pancreas. This does raise strong concern for malignancy. Surgical consultation is recommended. Further evaluation with pre and post contrast MR of the abdomen may be of benefit as well and could be performed on a nonemergent basis. Dictated by: Dictated on workstation # [id number]
[2020-10-27 17:39] LABS: BACTERIA,URINE TRACE /HPF; SQUAMOUS EPITHELIAL CELL,UR RARE /HPF
[2020-10-27] MEDS ORDERED: ACETAMINOPHEN 500 MG TAB (TYLENOL) PO ONE (18:00)
[2020-10-27] MEDS ORDERED: ONDANSETRON 4 MG/2 ML (SDV) Z0FRAN IVP ONE (18:15)
[2020-10-27] MEDS ORDERED: HYDROcodone/APAP 5 MG/325 MG (LORTAB) TAB PO ONE (18:15)
[2020-10-27] MEDS ORDERED: ONDA4TAB11 PO ×2 (18:18→19:28)
[2020-10-27] MEDS ORDERED: ACHD5005 PO (19:12)
[2020-10-27 19:17] VITALS: BP 127/73
== END 2020-10-27 19:25 | disposition home or self-care (01) ==
LOC: EDUNIT# 15:32 → ER 15:34
DX: K86.89 Other specified diseases of pancreas (principal); I10 Essential (primary) hypertension; Z88.5 Allergy status to narcotic agent; Z88.1 Allergy status to other antibiotic agents
CPT/HCPCS: 36415; 71045; 71260; 74177; 80053; 81000; 83690; 83735; 84484; 85025; 86141; 93005; 93041

== ENCOUNTER → 2020-11-06 | Outpatient (CLI) | payer OTHER ==
[~2020-11-06] MED LIST changes: +ACHD5005 PO; -CATHETER FLUSH 10 ML SYR IV PRN; +GADOBUTROL 10 MMOL/10 ML (GADAVIST) VIAL IV ONE; +ONDA4TAB11 PO; -REGADENOSON 0.4 MG/5 ML SYR (LEXISCAN) IV ONE
--- NOTE | 2020-11-06 13:40 | Diagnostic Imaging Report ---
PROCEDURE: MR imaging abdomen with and without contrast. TECHNIQUE: Multiplanar, multisequence MR imaging of the abdomen was performed with and without contrast. Date: November 06, 2020. Indication: 59-year-old female, right upper quadrant abdominal pain. Pancreatic mass. Comparison: CT chest, abdomen, and pelvis October 27, 2020. Findings: There is no diffuse fatty infiltration of the liver. The outer liver contours are not nodular. The liver is not entirely included in the [id number] on all sequences. There is no identified liver lesion. The main, right, and left portal veins are patent. The gallbladder is grossly unremarkable. There is no intrahepatic or extrahepatic bile duct dilation. The main pancreatic duct is normal in caliber. There is a mildly T2 hyperintense fibrin intense lesion in the tail of the pancreas measuring 2.0 x 1.7 x 2.5 cm in size which does have an internal contrast enhancement. The spleen is normal in size. The adrenal glands are unremarkable. There are T2 hyperintense nonenhancing renal lesions bilaterally most compatible with benign renal cyst. There is no hydronephrosis. There is no identified abnormally enlarged lymph node in the abdomen meeting size criteria for adenopathy. IMPRESSION: 1. Enhancing mass in the tail of the pancreas measuring 2.0 x 1.7 x 2.5 cm in diameter. This is concerning for a pancreatic malignancy. Adenocarcinoma and lymphoma are the primary differential diagnostic considerations. 2. No evidence of metastatic disease within the included field of view. Dictated by: Dictated on workstation # [id number]
== END ==
LOC: RAD 10:38
PROVIDERS: ATTEND Surgery
DX: K86.89 Other specified diseases of pancreas (principal)
CPT/HCPCS: 74183

== ENCOUNTER → 2020-11-23 | Outpatient (CLI) | payer OTHER ==
[~2020-11-23] MED LIST changes: +CATHETER FLUSH 10 ML SYR IV PRN; -GADOBUTROL 10 MMOL/10 ML (GADAVIST) VIAL IV ONE
--- NOTE | 2020-11-23 13:00 | Diagnostic Imaging Report ---
Nuclear medicine and hepatobiliary scan. Indication: Right upper quadrant pain The study was performed following administration of 5.24 mCi of Choletec. One can of Ensure was administered 45 minutes into the exam for the calculation of ejection fraction. There are no prior nuclear medicine studies available comparison. The CT chest, abdomen and pelvis exam of 10/27/2020 failed to show any sign of an acute abnormality. However there did appear to be a mass in the tail of the pancreas. The subsequent MRI abdomen exam of 11/06/2020 also indicated a pancreatic mass. There was no abnormality of the gallbladder or intrahepatic or extrahepatic biliary tree. On this study there is uptake of the radiotracer by the gallbladder before 30 minutes. This would weigh against a diagnosis of acute cholecystitis. There is also extension of the radiotracer into the small bowel indicating that the common bile duct is not obstructed. The ejection fraction is 76.3% (normal greater than 35%). The pancreatic mass seen on the previous MRI and CT examinations is not well visualized on this study. IMPRESSION: 1. There is no evidence for acute cholecystitis or for obstruction or common bile duct. 2. The ejection fraction is 76.3% and well within normal limits. Dictated by: Dictated on workstation # [id number]
== END ==
LOC: CARD 10:00
PROVIDERS: ATTEND Surgery
DX: R10.11 Right upper quadrant pain (principal)
CPT/HCPCS: 78227; A9537

== ENCOUNTER → 2021-05-14 | Outpatient (CLI) | payer OTHER ==
[~2021-05-14] MED LIST changes: -CATHETER FLUSH 10 ML SYR IV PRN
== END ==
LOC: CARD 12:00
PROVIDERS: ATTEND Internal Medicine Cardiovascular Disease
DX: I51.7 Cardiomegaly (principal); R00.2 Palpitations
CPT/HCPCS: 93225; 93226; 93306

== ENCOUNTER → 2022-11-04 | Outpatient (CLI) | payer OTHER ==
--- NOTE | 2022-11-04 12:10 | Diagnostic Imaging Report ---
PROCEDURE: MRI lumbar spine. TECHNIQUE: Multiplanar, multisequence MRI of the lumbar spine was performed without contrast. INDICATION: Radiculopathy and leg weakness. Pain Lumbar spine MRI without contrast 11/04/2022 COMPARISON: None FINDINGS: There is normal height and alignment of the vertebral bodies. Tip of the conus unremarkable in appearance and location. L1-L2: Unremarkable. L2-L3: Unremarkable. L3-L4: Minimal left paracentral disc protrusion is noted extending towards the left neural foramen. There is bilateral facet and ligament flavum hypertrophy with no central stenosis. There is mild to moderate bilateral neural foraminal narrowing. L4-L5: There is minimal broad-based bulging disc material with bilateral facet and ligamentum flavum hypertrophy. No central stenosis appreciated. The neural foramina patent. L5-S1: There is a mild broad-based bulging disc. There is bilateral facet and ligamentum flavum hypertrophy. There is no central stenosis. No acute process seen in the visualized intra-abdominal structures. Impression: 1. Multilevel degenerative findings predominantly from L3-L4 through L5-S1 as detailed above. Left paracentral disc protrusion at the L3-L4 level may be abutting the exiting left nerve root. Correlate with symptoms. Dictated by: Dictated on workstation # [id number]
== END ==
LOC: RAD 09:56
PROVIDERS: ATTEND Nurse Practitioner Family
DX: M51.16 Intervertebral disc disorders with radiculopathy, lumbar region (principal); M51.17 Intervertebral disc disorders with radiculopathy, lumbosacral region; M47.26 Other spondylosis with radiculopathy, lumbar region; M47.27 Other spondylosis with radiculopathy, lumbosacral region
CPT/HCPCS: 72148

== ENCOUNTER 2022-11-13 10:22 | Outpatient (RCR) | payer OTHER | END 2022-11-19 | disposition home or self-care (01) | PROVIDERS: ATTEND Nurse Practitioner | DX: M79.7 Fibromyalgia (principal); M54.32 Sciatica, left side; G89.29 Other chronic pain ==

== ENCOUNTER 2022-11-21 09:03 | Outpatient (RCR) | payer OTHER | END 2022-12-11 12:20 | disposition home or self-care (01) | PROVIDERS: ATTEND Nurse Practitioner | DX: M79.7 Fibromyalgia (principal); M54.32 Sciatica, left side; G89.29 Other chronic pain ==

== ENCOUNTER → 2022-12-31 | Outpatient (CLI) | payer OTHER ==
[~2022-12-31] MED LIST changes: +GADOTERATE 0.5 MMOL/ML (CLARISCAN) 15 ML VIAL IV ONE
--- NOTE | 2022-12-31 14:55 | Diagnostic Imaging Report ---
PROCEDURE: MR imaging of the brain with and without contrast. TECHNIQUE: Multiplanar, multisequence MR imaging of the brain was performed with and without contrast. INDICATION: Upper and lower extremity bilateral weakness. COMPARISON: None. FINDINGS: Mild generalized parenchymal volume loss. Mild nonspecific T2 hyperintensities in the supratentorial white matter. No restricted water diffusion. No hemosiderin deposition or evidence of intracranial hemorrhage. No abnormal intracranial enhancement. Normal morphology including the major midline structures, sella, posterior fossa, and cerebellar pontine angle. Normal intracranial flow voids. No hydrocephalus or extra-axial fluid collections. The orbits are unremarkable. Mild mucosal thickening in the floor of the maxillary sinuses. The mastoids are clear. Normal bone marrow signal. IMPRESSION: Age-appropriate MRI of the brain without and with IV contrast. No acute findings. Dictated by: Dictated on workstation # [id number]
== END ==
LOC: RAD 13:15
PROVIDERS: ATTEND Nurse Practitioner Family
DX: M62.81 Muscle weakness (generalized) (principal)
CPT/HCPCS: 70553